=== PATIENT | female | born 1950 | race Caucasian/White ===

== ENCOUNTER → 2020-04-17 07:22 | Outpatient (CLI) | payer MEDICARE, SELFPAY ==
--- NOTE | ~2020-04-17 | MM_ITS ---
EXAMINATION: MM screening [facility] BI w rios HISTORY: Screening TECHNIQUE: Craniocaudal and mediolateral oblique 3-D tomosynthesis images were obtained and synthetic 2-D images were generated. CAD analysis was submitted and interpreted. COMPARISON: Comparison to multiple prior studies sequentially, with oldest reviewed study dated 09/2015. BREAST PARENCHYMAL COMPOSITION: The breasts are heterogeneously dense, which may obscure small masses . FINDINGS: There are benign bilateral breast calcifications. There are developing cluster of calcifica tions in the lower inner quadrant of the left breast. There are no suspicious masses or architectural distortion. IMPRESSION: 1. Developing cluster of left breast calcifications. 2. Magnification views are recommended. BI-RADS Category 0: Incomplete: Needs additional imaging evaluation. Reviewed, dictated and finalized at location A.
== END ==
PROVIDERS: PCP Family Medicine; Visit Provider Nurse Practitioner Adult Health
DX: Z12.31 Encounter for screening mammogram for malignant neoplasm of breast (principal); R92.8 Other abnormal and inconclusive findings on diagnostic imaging of breast
CPT/HCPCS: 77063; 77067

== ENCOUNTER → 2020-04-27 08:03 | Outpatient (CLI) | payer MEDICARE, SELFPAY ==
--- NOTE | ~2020-04-27 | MM_ITS ---
EXAMINATION: MM diagnostic mammo unilat LT HISTORY: Microcalcifications TECHNIQUE: ML and ML, MLO and craniocaudal magnification views of the left breast were performed . CA D analysis was submitted and interpreted. COMPARISON: 04/17/2020 bilateral digital screening mammogram 01/04/2019 diagnostic left digital mammogram 12/17/2018bilateral digital screening mammogram examinations FINDINGS: There are scattered benign-appearing calcifications of the left breast including some group ed microcalcifications in the lower inner quadrant of the left breast near a stereotactic biopsy enha er. These microcalcifications are stable in appearance since 12/17/2018 and 01/04/2019. These ballon to a group of microcalcifications, some of which were removed by stereotactic biopsy and were reported benign. IMPRESSION: 1. Probable benign microcalcifications of left breast, part of a group of microcalcifications injecte d to stereotactic biopsy after 01/04/2019 and reported to be benign 2. 6 month diagnostic left mammogram follow-up is recommended. BI-RADS category 3, probably benign findings. Reviewed, dictated and finalized at location A. IMPRESSION: 1. Probable benign microcalcifications of left breast, part of a group of micro calcifications injected to stereotactic biopsy after 01/04/2019 and reported to be benign 2. 6 month diagnostic left mammogram follow-up is recommended. BI-RADS category 3, probably benign findings.
== END ==
PROVIDERS: PCP Nurse Practitioner Adult Health; Visit Provider Nurse Practitioner Adult Health
DX: R92.8 Other abnormal and inconclusive findings on diagnostic imaging of breast (principal)
CPT/HCPCS: 77065

== ENCOUNTER → 2020-11-30 09:02 | Outpatient (CLI) | payer MEDICARE, SELFPAY ==
--- NOTE | ~2020-11-30 | MM_ITS ---
EXAMINATION: MM diagnostic [facility] LT w rios HISTORY: Follow-up for probably benign left breast calcifications TECHNIQUE: Craniocaudal, mediolateral, and mediolateral oblique 3-D tomosynthesis images of the left breast were performed and synthetic 2-D images were generated. Magnification views are also obtained. CAD analysis was submitted and interpreted. COMPARISON: 04/27/2020, 04/17/2020,12/27/2018, 12/17/2018, 07/27/2017, 06/11/2016 FINDINGS: There are grouped calcifications in the posterior third of the inner breast at the 9:00 loc ation approximately 10 cm from the nipple. The morphology remains pleomorphic and coarse heterogeneou s. An adjacent biopsy marker is present with some of this group of calcifications having previously u ndergone reportedly benign biopsy. There has been no suspicious interval change. No associated mass o r architectural distortion is identified. IMPRESSION: 1. Stable left breast calcifications having previously undergone benign biopsy. No mammographic evide nce of malignancy. 2. Routine screening mammography is recommended. BI-RADS Category 2: Benign finding(s). Reviewed, dictated and finalized at location A. IMPRESSION: 1. Stable left breast calcifications having previously undergone benign biopsy. No mammographic evidence of malignancy. 2. Routine screening mammography is recommended. BI-RADS Category 2: Benign finding(s).
== END ==
PROVIDERS: PCP Nurse Practitioner Adult Health; Visit Provider Nurse Practitioner Adult Health
DX: R92.8 Other abnormal and inconclusive findings on diagnostic imaging of breast (principal)
CPT/HCPCS: 77061; 77065; G0279

== ENCOUNTER 2021-03-19 08:44 | Outpatient (CLI) | payer MEDICARE, SELFPAY ==
[2021-03-19 09:55] LABS: Albumin Level 4.5 g/dL (3.5-5.1); Anion Gap 8 mmol/L (8-16); Blood Urea Nitrogen 14 mg/dL (7-17); Calcium 9.9 mg/dL (8.4-10.2); Carbon Dioxide 27 mmol/L (22-30); Chloride 99 mmol/L (98-107); Estimated Glomerular Filt Rate > 60; Glucose 112 mg/dL (65-110); Phosphorus 3.7 mg/dL (2.5-4.5); Potassium 4.6 mmol/L (3.4-5.0); Sodium 134 mmol/L (137-145)
[2021-03-19 10:04] LABS: Parathyroid Intact 134.3 pg/mL (7.5-53.5)
[2021-03-19 10:28] LABS: Vitamin D 25 Hydroxy 41.1 ng/mL
[2021-03-19 20:56] LABS: Creatinine Urine 48.1 mg/dL
[2021-03-19 21:03] LABS: Creatinine 24 Hour Urine 1.1 gm/24 (0.8-1.8); Total Volume 24 Hour Urine 2300 ml
[2021-03-22 14:54] LABS: Total Volume 2300 mL; Urine Calcium 7.8 mg/dL
== END 2021-03-19 08:45 | disposition home or self-care (01) ==
PROVIDERS: PCP Nurse Practitioner Adult Health; Visit Provider Internal Medicine Endocrinology, Diabetes & Metabolism
DX: E21.3 Hyperparathyroidism, unspecified (principal)
CPT/HCPCS: 36415; 80069; 81050; 82306; 82330; 82340; 82570; 83970

== ENCOUNTER 2021-03-20 09:03 | Outpatient (CLI) | payer MEDICARE, SELFPAY ==
[2021-03-23 06:32] LABS: Ionized Calcium 5.3 mg/dL (4.8-5.6)
== END 2021-03-20 09:04 | disposition home or self-care (01) ==
PROVIDERS: PCP Nurse Practitioner Adult Health; Visit Provider Internal Medicine Endocrinology, Diabetes & Metabolism
DX: E21.3 Hyperparathyroidism, unspecified (principal)
CPT/HCPCS: 36415; 82330

== ENCOUNTER → 2021-04-26 17:38 | Outpatient (CLI) | payer MEDICARE, SELFPAY ==
--- NOTE | ~2021-04-26 | DEXA_ITS ---
Bone Density Report Name: Sarahi Arellano Age: 70 Sex: Female Ethnicity: White Date of : 1950 Indication: hyperparathyroidism; height loss; prior fracture; asthma or emphysema; postmenopausal Referring Provider: Ebony Sen Study: Bone densitometry was performed. Exam Date: April 26, 2021 Accession number: [id number] Bone Density: Region BMD T-score Z-score Classification AP Spine (L1-L4) 1.054 0.1 2.2 Normal Femoral Neck (Left) 0.687 -1.5 0.4 Osteopenia Total Hip (Left) 0.918 -0.2 1.4 Normal Femoral Neck (Right) 0.689 -1.4 0.4 Osteopenia Total Hip (Right) 0.863 -0.6 0.9 Normal Total Hip Mean 0.890 -0.4 1.2 Normal World Health Organization criteria for BMD impression classify patients as: Normal (T-score at or above -1.0), Osteopenia (T-score between -1.0 and -2.5), or Osteoporosis (T-score at or below -2.5). 10-year Fracture Risk: FRAX not reported because: Prior hip or vertebral fracture Previous Exams: Region Exam Age BMD T-score BMD Change BMD Change Date g/cm2 vs Baseline vs Previous AP Spine(L1-L4) 04/26/2021 70 1.054 0.1 0.091* 0.037* 12/17/2018 68 1.016 -0.3 0.054* 0.054* 06/11/2016 66 0.963 -0.8 Total Hip(Left) 04/26/2021 70 0.918 -0.2 0.015 -0.014 12/17/2018 68 0.933 -0.1 0.029* 0.029* 06/11/2016 66 0.903 -0.3 Total Hip(Right) 04/26/2021 70 0.863 -0.6 -0.017 -0.020 12/17/2018 68 0.883 -0.5 0.003 0.003 06/11/2016 66 0.880 -0.5 *Denotes significance at 95% confidence level, LSC for AP Spine = 0.022 g/cm2, LSC for Total Hip = 0.027 g/cm2 Clinical Information Provided by Patient: Have had a previous hip or vertebral fracture Has had a low trauma fracture Has used the following medications: Vitamin D Has the following medical conditions: Asthma or Emphysema, Hyperparathyroidism Patient maximum height was 62.0 Menopause Age: 52 No regular weight bearing exercise Drinks caffeinated beverages Onset of menses at age 13 Number of children 1 Impression: The patient has low bone mass, based on the Left Femoral Neck T-score. The patient has risk factors, including: previous fracture. No significant bone loss was observed. Discussion: INCREASED RISK OF FRACTURE DUE TO HISTORY OF FRACTURE. The patient's previous fracture puts the patient at high risk of a future fracture. In untr
== END ==
PROVIDERS: PCP Nurse Practitioner Adult Health; Visit Provider Internal Medicine Endocrinology, Diabetes & Metabolism
DX: E21.3 Hyperparathyroidism, unspecified (principal); M85.852 Other specified disorders of bone density and structure, left thigh; M85.851 Other specified disorders of bone density and structure, right thigh
CPT/HCPCS: 77080

== ENCOUNTER → 2022-02-11 13:48 | Outpatient (CLI) | payer MEDICARE, SELFPAY ==
--- NOTE | ~2022-02-11 | MM_ITS ---
EXAMINATION: MM screening [facility] BI w rios HISTORY: Screening TECHNIQUE: Craniocaudal and mediolateral oblique 3-D tomosynthesis images were obtained and synthetic 2-D images were generated. CAD analysis was submitted and interpreted. COMPARISON: Comparison to multiple prior studies sequentially, with oldest reviewed study dated 07/10. BREAST PARENCHYMAL COMPOSITION: The breasts are heterogeneously dense, which may obscure small masses . FINDINGS: There is no evidence of suspicious mass, calcification, or architectural distortion to sugg est malignancy in either breast. There has been no suspicious interval change. Stable bilateral breas t calcifications. IMPRESSION: 1. No mammographic evidence of malignancy. 2. Recommend routine screening mammography in one year. BI-RADS Category 2: Benign finding(s). Reviewed, dictated and finalized at location A.
== END ==
PROVIDERS: PCP Nurse Practitioner Adult Health; Visit Provider Nurse Practitioner Adult Health
DX: Z12.31 Encounter for screening mammogram for malignant neoplasm of breast (principal)
CPT/HCPCS: 77063; 77067

== ENCOUNTER 2023-01-02 01:59 | Day surgery (SDC) | payer MEDICARE, SELFPAY ==
[2022-12-18 12:33] VITALS: BMI 35.2
[2023-01-02 10:17] VITALS: BP 142/63; PULSE 73; RESP 19; TEMP 36.2; O2SAT 99
[2023-01-02 10:37] LABS: Glucose Point of Care 86 mg/dl (65-105)
[2023-01-02] MEDS: LACTATED RINGERS 1,000 ML 150 ML IV CONT (10:37)
--- NOTE | 2023-01-02 10:39 | PM.HPGS ---
History of Present Illness History of Present Illness Consent: Risks, benefits, and alternatives have been discussed and questions answered. Patient agrees to proceed with procedure. Chief complaint: other fecal abnormalities Narrative: Sarahi Arellano is a 72 year old female Referred for colon cancer screening. Recent Cologuard test was positive. Review of Systems Review of Systems: All systems reviewed & are unremarkable except as noted in HPI and below PMFSH Family History Family History Other Family history of malignant neoplasm of brain Hypertension Social History Social History Smoking status: Former smoker Tobacco type: cigarettes Alcohol intake: current Substance use: never Substance use type: does not use Living arrangements: with family Spiritual care concerns: No Meds Home Medications and Allergies Home Medications Medication Instructions Recorded Confirmed Type aspirin 81 mg tablet,delayed 81 mg PO DAILY 03/19/20 12/18/22 History release (Adult Aspirin Regimen) garlic 1,000 mg capsule 1,000 mg PO DAILY 03/19/20 12/18/22 History magnesium 250 mg tablet 250 mg PO DAILY 03/19/20 12/18/22 History omega-3 fatty acids 1,000 mg 1,000 mg PO DAILY 03/19/20 12/18/22 History capsule ropinirole 0.5 mg tablet 0.5 mg PO BID PRN Restless Leg(S) 03/19/20 12/18/22 History tramadol 50 mg tablet 50 mg PO Q6H PRN Pain 03/19/20 12/18/22 History vitamin E (dl, acetate) 180 mg 180 mg PO DAILY 03/19/20 12/18/22 History (400 unit) capsule zinc acetate 50 mg (zinc) capsule 50 mg PO DAILY 03/19/20 12/18/22 History (Galzin) cholecalciferol (vitamin D3) 25 50 mcg PO DAILY 12/13/20 12/18/22 History mcg (1,000 unit) capsule carvedilol 6.25 mg tablet 6.25 mg PO Q12H 09/25/22 01/02/23 History empagliflozin 10 mg tablet 10 mg PO DAILY 09/25/22 12/18/22 History (Jardiance) glucosamine HCl 1,500 mg tablet 1,500 mg PO DAILY 09/25/22 12/18/22 History icosapent ethyl 1 gram capsule 2 g PO BID 09/25/22 12/18/22 History (Vascepa) milk thistle 175 mg tablet 175 mg PO DAILY 09/25/22 12/18/22 History montelukast 10 mg tablet 10 mg PO DAILY 09/25/22 12/18/22 History olmesartan 40 1 tablet PO DAILY 09/25/22 12/18/22 History mg-hydrochlorothiazide 25 mg tablet rivaroxaban 2.5 mg tablet (Xarelto) 2.5 mg PO BID 09/25/22 01/02/23 History ascorbic acid (vitamin C) 500 mg 500 mg PO DAILY 12/18/22 12/18/22 History tablet omeprazole 20 mg capsule,delayed 20 mg PO EVERY OTHER DAY 12/18/22 12/18/22 History release simvastatin 40 mg tablet 40 mg PO HS 12/18/22 12/18/22 History turmeric 500 mg PO DAILY 12/18/22 12/18/22 History vitamin B complex 1 tablet PO DAILY 12/18/22 12/18/22 History Allergies Allergy/AdvReac Type Severity Reaction Status Date / Time No Known Allergies Allergy Mild Verified 01/02/23 10:15 Vital Signs Vital Signs - 24 hr 01/02/23 10:17 Temperature 36.2 C L Pulse Rate 73 Respiratory Rate 19 Blood Pressure 142/63 H Pulse Oximetry 99 Oxygen Delivery Room Air Exam Const: General: alert Orientation/consciousness: patient oriented x3 Resp: Auscultation: clear to auscultation bilaterally Cardio: Rhythm: regular rhythm GI: GI Palp: Yes Soft to palpation and No Tenderness to palpation present (GI) Neuro: General: patient oriented x3 Assessment and Plan Assessment and plan (1) Colon cancer screening: Code(s): Z12.11 - Encounter for screening for malignant neoplasm of colon Status: Acute Assessment and Plan: Colonoscopy with possible biopsy or polypectomy or cautery or injection of substances.
--- NOTE | 2023-01-02 11:54 | SUR.OPER ---
DR GOODMAN SWITCHED FROM COLONOSCOPE TO GASTROSCOPE.
[2023-01-02 11:58] VITALS: BP 101/63; PULSE 72; RESP 19; O2SAT 99
[2023-01-02 12:08] VITALS: BP 111/70; PULSE 73; RESP 19; O2SAT 99
[2023-01-02 12:18] VITALS: BP 122/78; PULSE 77; RESP 18; O2SAT 99
== END 2023-01-02 12:20 | disposition home or self-care (01) ==
PROVIDERS: PCP Family Medicine; Visit Provider Internal Medicine Gastroenterology
PROC: 0DJD8ZZ Inspection of Lower Intestinal Tract, Via Natural or Artificial Opening Endoscopic (ICD-10-PCS; CPT 45378; principal; 2023-01-02 11:30)
DX: R19.5 Other fecal abnormalities (principal); D12.5 Benign neoplasm of sigmoid colon; K56.609 Unspecified intestinal obstruction, unspecified as to partial versus complete obstruction; K57.30 Diverticulosis of large intestine without perforation or abscess without bleeding; Z87.891 Personal history of nicotine dependence
CPT/HCPCS: 45385; 45381; 82948; 88305; J2001; J2704; J7120

== ENCOUNTER 2023-03-26 10:00 | Outpatient (CLI) | payer MEDICARE, SELFPAY ==
[2023-03-26 17:05] LABS: Albumin Level 4.4 g/dL (3.5-5.1); Anion Gap 7 mmol/L (8-16); Blood Urea Nitrogen 26 mg/dL (7-17); Carbon Dioxide 32 mmol/L (22-30); Chloride 99 mmol/L (98-107); Estimated Glomerular Filt Rate > 60; Glucose 98 mg/dL (65-110); Phosphorus 4.2 mg/dL (2.5-4.5); Potassium 4.6 mmol/L (3.4-5.0); Sodium 138 mmol/L (137-145)
[2023-03-26 17:57] LABS: Parathyroid Intact 152.3 pg/mL (7.5-53.5)
[2023-03-26 20:02] LABS: Vitamin D 25 Hydroxy 48.1 ng/mL
== END 2023-03-26 10:01 | disposition home or self-care (01) ==
LOC: ANHWCLAB 10:03
PROVIDERS: PCP Family Medicine; Visit Provider Internal Medicine Endocrinology, Diabetes & Metabolism
DX: E21.3 Hyperparathyroidism, unspecified (principal); M85.80 Other specified disorders of bone density and structure, unspecified site
CPT/HCPCS: 36415; 80069; 82306; 83970

== ENCOUNTER 2023-04-29 10:19 | Outpatient (CLI) | payer MEDICARE, SELFPAY ==
--- NOTE | ~2023-04-29 | DEXA_ITS ---
Bone Density Report Name: PETRONA RUSSO Age: 72 Sex: Female Ethnicity: White Date of : 1950 Indication: hyperparathyroidism; height loss; prior fracture; asthma or emphysema; postmenopausal Referring Provider: Ebony Sen Study: Bone densitometry was performed. Exam Date: April 29, 2023 Accession number: [id number] Bone Density: Region BMD T-score Z-score Classification AP Spine (L1-L4) 1.135 0.8 3.1 Normal Femoral Neck (Left) 0.704 -1.3 0.7 Osteopenia Total Hip (Left) 0.881 -0.5 1.2 Normal Femoral Neck (Right) 0.665 -1.7 0.3 Osteopenia Total Hip (Right) 0.835 -0.9 0.8 Normal Total Hip Mean 0.858 -0.7 1.0 Normal World Health Organization criteria for BMD impression classify patients as: Normal (T-score at or above -1.0), Osteopenia (T-score between -1.0 and -2.5), or Osteoporosis (T-score at or below -2.5). 10-year Fracture Risk: FRAX not reported because: Prior hip or vertebral fracture Previous Exams: Region Exam Age BMD T-score BMD Change BMD Change Date g/cm2 vs Baseline vs Previous AP Spine(L1-L4) 04/29/2023 72 1.135 0.8 0.173 0.082 04/26/2021 70 1.054 0.1 0.091* 0.037* 12/17/2018 68 1.016 -0.3 0.054* 0.054* 06/11/2016 66 0.963 -0.8 Total Hip(Left) 04/29/2023 72 0.881 -0.5 -0.022 -0.037 04/26/2021 70 0.918 -0.2 0.015 -0.014 12/17/2018 68 0.933 -0.1 0.029* 0.029* 06/11/2016 66 0.903 -0.3 Total Hip(Right) 04/29/2023 72 0.835 -0.9 -0.045 -0.028 04/26/2021 70 0.863 -0.6 -0.017 -0.020 12/17/2018 68 0.883 -0.5 0.003 0.003 06/11/2016 66 0.880 -0.5 *Denotes significance at 95% confidence level, LSC for AP Spine = 0.022 g/cm2, LSC for Total Hip = 0.027 g/cm2 Clinical Information Provided by Patient: Have had a previous hip or vertebral fracture Has had a low trauma fracture Has used the following medications: Vitamin D Has the following medical conditions: Asthma or Emphysema, Hyperparathyroidism Patient maximum height was 62.0 Menopause Age: 52 No regular weight bearing exercise Drinks caffeinated beverages Onset of menses at age 13 Number of children 1 Impression: The patient has low bone mass, based on the Right Femoral Neck T-score. The patient has risk factors, including: previous fracture. No significant
== END 2023-04-29 10:20 ==
PROVIDERS: PCP Family Medicine; Visit Provider Internal Medicine Endocrinology, Diabetes & Metabolism
DX: E21.3 Hyperparathyroidism, unspecified (principal); M85.852 Other specified disorders of bone density and structure, left thigh; M85.851 Other specified disorders of bone density and structure, right thigh
CPT/HCPCS: 77080

== ENCOUNTER → 2023-04-29 11:02 | Outpatient (CLI) | payer MEDICARE, SELFPAY ==
--- NOTE | ~2023-04-29 | MM_ITS ---
EXAMINATION: MM screening [facility] BI w rios HISTORY: Screening TECHNIQUE: Craniocaudal and mediolateral oblique 3-D tomosynthesis images were obtained and synthetic 2-D images were generated. CAD analysis was submitted and interpreted. COMPARISON: Comparison to multiple prior studies sequentially, with oldest reviewed study dated 12/17. BREAST PARENCHYMAL COMPOSITION: The breasts are heterogeneously dense, which may obscure small masses FINDINGS: Stable appearance to benign bilateral breast calcifications There is no evidence of suspici ous mass, calcification, or architectural distortion to suggest malignancy in either breast. There dominguez s been no suspicious interval change. IMPRESSION: 1. No mammographic evidence of malignancy. 2. Recommend routine screening mammography in one year. BI-RADS Category 2: Benign finding(s). Reviewed, dictated and finalized at location A.
== END ==
PROVIDERS: PCP Family Medicine; Visit Provider Family Medicine
DX: Z12.31 Encounter for screening mammogram for malignant neoplasm of breast (principal)
CPT/HCPCS: 77063; 77067

== ENCOUNTER 2023-12-24 10:02 | Outpatient (CLI) | payer MEDICARE, SELFPAY ==
[2023-12-24 17:24] LABS: Albumin Level 4.4 g/dL (3.5-5.1); Anion Gap 6 mmol/L (4-12); Blood Urea Nitrogen 26 mg/dL (7-17); Carbon Dioxide 29 mmol/L (22-30); Chloride 103 mmol/L (98-107); Estimated Glomerular Filt Rate > 60; Glucose 105 mg/dL (65-110); Phosphorus 4.3 mg/dL (2.5-4.5); Potassium 4.3 mmol/L (3.4-5.0); Sodium 138 mmol/L (137-145)
[2023-12-24 17:57] LABS: Parathyroid Intact 112.4 pg/mL (7.5-53.5)
[2023-12-24 22:11] LABS: Vitamin D 25 Hydroxy 35.1 ng/mL
[2023-12-26 16:38] LABS: Ionized Calcium 5.2 mg/dL (4.7-5.5)
== END 2023-12-24 10:03 | disposition home or self-care (01) ==
LOC: ANHWCLAB 10:04
PROVIDERS: PCP Family Medicine; Visit Provider Internal Medicine Endocrinology, Diabetes & Metabolism
DX: E21.3 Hyperparathyroidism, unspecified (principal); M85.80 Other specified disorders of bone density and structure, unspecified site; R79.89 Other specified abnormal findings of blood chemistry
CPT/HCPCS: 36415; 80069; 82306; 82330; 83970

== ENCOUNTER 2024-06-07 12:02 | Outpatient (CLI) | payer MEDICARE, SELFPAY ==
--- NOTE | ~2024-06-07 | MM_ITS ---
EXAMINATION: MM screening [facility] BI w rios HISTORY: Screening mammogram TECHNIQUE: Craniocaudal and mediolateral oblique 3-D tomosynthesis images were obtained and synthetic 2-D images were generated. CAD analysis was submitted and interpreted. COMPARISON: 04/29/2023, 02/11/2022, 11/30/2020 BREAST PARENCHYMAL COMPOSITION:Not Dense. There are scattered areas of fibroglandular density. FINDINGS: No suspicious mass, calcification, or architectural distortion are identified in either suzy ast to suggest malignancy. There has been no suspicious interval change. IMPRESSION: No mammographic evidence of malignancy. Recommend routine screening mammography in one year. BI-RADS Category 1: Negative Reviewed, dictated and finalized at location .
== END 2024-06-07 12:03 | disposition home or self-care (01) ==
LOC: MICIMG 12:03
PROVIDERS: PCP Physician Assistant; Visit Provider Physician Assistant
DX: Z12.31 Encounter for screening mammogram for malignant neoplasm of breast (principal)
CPT/HCPCS: 77063; 77067

== ENCOUNTER 2024-09-19 09:52 | Outpatient (CLI) | payer MEDICARE, SELFPAY ==
--- OUTSIDE RECORDS SUMMARY | 2024-09-19 10:36 | XMS_ITS | Clinical Summary ---
Author Organization [facility] Address [address] [place] [address] Phone Care Team Providers Care Lineman Apprentice Name Role Phone Unavailable Primary Care Provider Unavailabl e Allergies No known active allergies Social History Tobacco Use Types Packs/Day Years Used Date Smoking Tobacco: Never Assessed Comments Unknown Sex and Gender Information Value Date Recorded Sex Assigned at Not on file Legal Sex Female 3:44 PM CDT Gender Identity Not on file Sexual Orientation Not on file Last Filed Vital Signs Vital Sign Reading Time Taken Comments Blood Pressure - - Pulse - - Temperature - - Respiratory Rate - - Oxygen Saturation - - Inhaled Oxygen Concentration - - Weight 93.9 kg (207 lb) 01/11/2019 10:00 AM CDT Height 149.9 cm (4' 11 ) 01/11/2019 10:00 AM CDT Body Mass Index 41.81 01/11/2019 10:00 AM CDT Plan of Treatment Health Maintenance Due Date Last Done Comments BREAST CANCER SCREENING 1990 COLORECTAL SCREENING 1995 Colorectal Cancer Screening 1995 FIT-DNA Q 3 years 1995 FIT/FOBT Q 1 year 1995 Flex Sig/CT Colonography Q 5 years 1995 ZOSTER VACCINE (1 of 2) 2000 RSV VACCINE (60+ or ) (1 - Risk 60-74 years 1-dose series) 2010 OSTEOPOROSIS SCREENING 2015 PNEUMOCOCCAL VACCINE 65+ YEA RS (3 of 3 - PCV20 or PCV21) 08/13/2022 08/13/2017, 04/29/2011 INFLUENZA VACCINE (#1) 2024 8, 05/10/2017, 04/28/2016, Additional history exists DTAP/TDAP/TD VACCINES (2 - T d or Tdap) 05/28/2025 05/28/2015, 08/10/1992 Insurance [facility] [id number]
--- OUTSIDE RECORDS SUMMARY | 2024-09-19 10:36 | XMS_ITS | CONTINUITY OF CARE DOCUMENT ---
Author Name dawit pastor Address Unknown Organization [facility] Address [address] [place] [address] Phone [phone] Care Team Providers Care Leacher Name Role Phone Virginie LOPEZ, Yan Unavailable [phone] DAMI LOPEZ, ДМИТРИЙ Unavailable [phone] DAMI LOPEZ, RUNDA Unavailable PROBLEMS Condition Status Date Provider Notes Diastolic dysfunction and lvh active Yan Rachel MD Hypertension;mild katherin by dup jose one side;neg angio active Yan Rachel MD Hyperlipidemia;NEG CRP and lpa active Becky Rachel MD Pre-diabetes active Lydia Helms NP Obesity (BMI = 30-39.9) active Yan thurston MD adiex not help much Screening active Yan Rachel MD CAD;carotid plaquing active Yan Mo Mitral insufficiency, mild active Yan monge MD Exposure to SARS-associated coronavirus;had vaccine active Yan Rachel MD Tobacco use, quit active Yan Rachel MD T OO RMEOTE TO SCREN FAMILY HISTORY OF HEART DISEASE active Ruth Ann Rachel MD MOTHER HAD AL AND hyperparathyroidism active Yan Rachel MD Microalbuminuria active Yan Rachel MD on arb and jardicne, not diabetic, neg egfr ENCOUNTERS Date Type Provider Location Encounter Diag nosis - In-person encounter Office Visit Yan Rachel MD [facility] Obesity (BMI = 30-39.9)ScreeningCAD;carotid plaquingMicroalbuminuria - In-person encounter Office Visit Yan Rachel MD [facility] - In-person encounter Office Visit Yan Rachel MD [facility] Microalbuminuria - In-person encounter Office Visit Yan Rachel MD [facility] Hypertension;mild katherin by duplex one side;neg angioMicroalbuminuria - In-person encounter Office Visit Yan Rachel MD [facility] Mitral insufficiency, mildExposure to SARS-associated coronavirus;had vaccineTobacco use, quitFAMILY HISTORY OF HEART DISEASEhyperparathyroidism - In-person encounter Office Visit Yan Rachel MD [facility] Hypertension;mild katherin by duplex one side;neg angioHyperlipidemia;NEG CRP and lpaPre-diabetesObesity (BMI = 30-39.9) VITAL SIGNS Date Observation Value Provider Body Mass Index (Ratio) 33.73 kg/m2 Ruth Ann Rachel MD respiratory rate E&M 18 /min Marisol Reinier sanchez pulse rate 67 /min [facility] blood pressure, cuff size regular Fa [facility] blood pressure, diastolic 69 mm[Hg] Fa [facility] blood pressure, systolic 104 mm[Hg] [facility], oximetry 96 % [facility] weight E&M 167 [lb_av] [facility] height E&M 59 [in_i] [facility] Body Mass Index (Ratio) 33.93 kg/m2 Ruth Ann Rachel MD blood pressure, diastolic 70 mm[Hg] Li [facility] blood pressure, systolic 137 mm[Hg] Hayley [facility] blood pressure, cuff size regular Ja angelet blood pressure, diastolic 70 mm[Hg] Ja angelet blood pressure, systolic 137 mm[Hg] Radha serna pulse rate 68 /min Arun respiratory rate E&M 12 /min Arun oxygen saturation, oximetry 97 % Arun weight E&M 168 [lb_av] Arun y height E&M 59 [in_i] Arun Body Mass Index (Ratio) 35.34 kg/m2 Ruth Ann Rachel MD blood pressure, diastolic 75 mm[Hg] [facility] blood pressure, systolic 141 mm[Hg] Mikal Blevins oxygen saturation, oximetry 99 % Izabel Blevins pulse rate 69 /min Izabel Blevins respiratory rate E&M 16 /min Izabel wang weight E&M 175 [lb_av] Izabel Blevins height E&M 59 [in_i] Izabel Blevins Body Mass Index (Ratio) 35.34 kg/m2 Ruth Ann Rachel MD blood pressure, diastolic 90 mm[Hg] Ri juan Galvin blood pressure, systolic 165 mm[Hg] Niels annie Galvin oxygen saturation, oximetry 99 % Fariba Galvin blood pressure, cuff size regular Jessi juan Galvin respiratory rate E&M 16 /min Ken Galvin pulse rate 72 /min Fariba Khanna son weight E&M 175 [lb_av] Fariba Rankinkana son height E&M 59 [in_i] Fariba Chuchokana ross Body Mass Index (Ratio) 34.33 kg/m2 Ruth Ann Rachel MD blood pressure, diastolic 81 mm[Hg] Ri juan Galvin blood pressure, systolic 155 mm[Hg] Niels annie Galvin blood pressure, cuff size regular Jessi Galvin oxygen saturation, oximetry 98 % Fariba Galvin respiratory rate E&M 16 /min Ken Galvin pulse rate 86 /min Fariba ross weight E&M 170 [lb_av] Fariba ross height E&M 59 [in_i] Fariba ross Body Mass Index (Ratio) 34.94 kg/m2 Ruth Ann Rachel MD blood pressure, diastolic 74 mm[Hg] Li [facility] blood pressure, systolic 160 mm[Hg] Hayley [facility]ic blood pressure, resting Yes [place] dominguez O'Nasir blood pressure, diastolic 74 mm[Hg] Ma rsha O'Nasir blood pressure, systolic 160 mm[Hg] Mar sha O'Nasir oxygen saturation, oximetry 99 % Yvette O'Nasir respiratory rate E&M 16 /min Yvette O'Nasir pulse rate 80 /min Yvette O'Nasir height E&M 59 [in_i] Yvette O'Nasir weight E&M 173 [lb_av] Yvette O'Nasir ALLERGIES No Known Drug Allergies RESULTS Date Observation Value Provider Reference Range Interpretation Location microalbumin/crea tinine ratio, urine 12 MG/G CREAT [facility] 0-29 microalbumin, random, urine 0.48 mg/dL [facility] Units converted. See lab report for original value. creatinine, random, urine 41.0 mg/dL [facility] Not Estab. c-reactive protein, quantitative, serum 1.67 mg/L [facility] 0.00-3.00 lipoprotein, beta, serum, point, quantitative, calculated 60 mg/dL [facility] 0-99 HDL cholesterol, serum 52 mg/dL [facility] >39 triglyceride, serum, random 120 mg/dL [facility] 0-149 cholesterol, serum 133 mg/dL [facility] 772-526 8418/02/07 calcium, serum 10.5 mg/dL [facility] 8.7-10.3 High carbon dioxide, venous blood 28 mmol/L [facility] 20-29 chloride, serum 98 mmol/L [facility] 96-106 potassium, serum 4.6 mmol/L [facility] 3.5-5.2 sodium, serum 139 mmol/L [facility] 186-203 7875/02/07 urea nitrogen/creatini ne ratio, serum 27 [facility] 12-28 creatinine, serum 0.77 mg/dL [facility] 0.57-1.00 urea nitrogen, blood 21 mg/dL [facility] 8-27 blood glucose, random 110 mg/dL [facility] 70-99 High hemoglobin A1C, blood, as % of total hemoglobin 5.5 % [facility] 4.8-5.6 HISTORY OF MEDICATION USE Medication Status Instructions Dates Provider Indications Com isaura Jardiance 10 mg tablet active Take 1 tablet by mouth once a day Nina Pang Jardiance 10 mg tablet completed TAKE 1 TABLET BY MOUTH EVERY DAY - Nina Pang Jardiance 10 mg tablet completed Take 1 tablet by mouth once a day - Falguni Yi Jardiance 10 mg tablet completed TAKE 1 TABLET BY MOUTH EVERY DAY - Nina Pang Xarelto 2.5 mg tablet active TAKE 1 TABLET BY MOUTH TWICE DAILY Veronica De La Rosa olmesartan-hyd rochlorothiazi de 40-25 mg tablet active TAKE 1 TABLET BY MOUTH DAILY No [place] [facility] icosapent ethyl 1 gram capsule active TAKE 2 CAPSULES BY MOUTH TWICE DAILY Veronica De La Rosa Due for f/u soon Jardiance 10 mg tablet completed Take 1 tablet by mouth once a day - Sigrid Ruddy Xarelto 2.5 mg tablet completed Take 1 tablet by mouth twice a day Take 1 tablet by mouth twice daily - Nina Pang simvastatin 40 mg tablet active TAKE 1 TABLET BY MOUTH EVERY NIGHT Hernan Means metformin 500 mg tablet extended release 24 hr completed - Yan Rachel MD Ventolin HFA 90 mcg/actuation HFA aerosol inhaler active as needed Yan Rachel MD tramadol 50 mg tablet active rarely Yan Rachel MD prednisone 5 mg tablet completed - Yan Rachel MD ropinirole 0.5 mg tablet active Yan Rachel MD hydrocodone-ac etaminophen 5-325 mg tablet active rarely Yan Rachel MD carvedilol 6.25 mg tablet active TAKE 1 TABLET BY MOUTH TWICE DAILY Veronica De La Rosa olmesartan-hyd rochlorothiazi de 40-25 mg tablet completed - Susan Cedillo aspirin 81 mg tablet,chewabl e active TAKE 1 TABLET BY MOUTH EVERY DAY Yan Rachel MD Benicar HCT 40-25 mg tablet completed TAKE 1 TABLET DAILY - Yan Rachel MD diltiazem HCl 90 mg capsule,extend ed release 12 hr completed TAKE 1 CAPSULE BY MOUTH TWICE DAILY - Lydia Nalluri [employer] lisinopril 20 mg tablet completed Take 1 tablet by mouth twice a day - Lydia Nalluri [employer] montelukast 10 mg tablet active Take 1 tablet by mouth once a day Yvette David simvastatin 20 mg tablet completed Take 1 tablet by mouth once a day - Yan Rachel MD SOCIAL HISTORY Date Observation Value Provider personal history of marijuana use no Yan Rachel MD drug use no [place] D alcohol use yes Yan Mo smoking status Former smoker Yan thurston MD personal history of marijuana use no Jess Goldsmithreri [employer] drug use no Jess Goldsmithreri [employer]PER[employer] alcohol use yes Jess Goldsmithreri [employer] smoking status Former smoker Jess Goldsmithre ri [employer] social history E&M S 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 Yan Rachel MD social history reviewed E&M revi ewed - no changes required Yan Rachel MD smoking status Never smoker Fariba Chucho soriano quit smoking, stage quit Yan rollins MD smoking status Never smoker Lydia Santosdolly ri [employer] FUNCTIONAL STATUS Date Observation Value Provider HRA, CV Assess/Plan, Angina (inactive) Management Plan continue current therapy Yan Rachel MD HRA, CV Assess/Plan, Angina (inactive) Management Plan continue current therapy Jess Momin NP HRA, CV Assess/Plan, Angina (inactive) Management Plan continue current therapy Yan Rachel MD HRA, CV Assess/Plan, Angina (inactive) Management Plan continue current therapy Yan Rachel MD HRA, CV Assess/Plan, Angina (inactive) Management Plan continue current therapy Yan Rachel MD FAMILY HISTORY Family Member Condition Mother Family History of Co ronary Artery Disease: INSURANCE PROVIDERS Payer name Policy type / Coverage type [place] red green party ID AARP Tappr insurance [place] [id number] [employer]RO[employer] MEDICARE Medicare [id number] ADVANCE DIRECTIVES Name Date [employer] TREATMENT PLAN Date Name Performer [id number],B, n ormalixe with arb and jardince Yan Rachel MD [id number],SYan MD [id number],SYan [id number],B, H er updated medication list for this problem includes: Vascepa 1 Gram Capsule (Icosapent ethyl) ..... Take 2 capsules by mouth twice daily Simvastatin 40 Mg Tablet (Simvastatin) ..... Take 1 tablet by mouth every night Yan Chancea [id number],S, d own to 5.4 Yan Serota [id number],S, Yan Serot a [id number],S, Yan Serot a [id number],S, l vedp 21, nml pro Yan Serota [id number],S, 7 0% lad and 100% rca s core 1339 Yan Serota [id number],S, e gfr great er than 60 n eg aaa Yan Serota [id number],C,normalixe wit h arb and jardince Yan Serota [id number],S, Yan Serot a [id number],S, Yan Serot a [id number],S, Yan Serot a [id number],S, Yan Serot a [id number],S, Yan Serot a [id number],S,e gfr great er than 60 n eg aaa Yan Serota [id number],B, d own to 5.4 on metformin Yan Serota [id number],S, 6 7 Yan Serota [id number],S, H er updated medication list for this problem includes: Simvastatin 40 Mg Tablet (Simvastatin) ..... Take 1 tablet by mouth every night Yan Chancea [id number],S,lvedp 21, nml pro Yan Serota [id number],S,7 0% lad and 100% rca s core 1339 Yan Serota [id number],C,down to 5.4 o n metformin Yan Serota [id number],C,pro nml Harve y Serota [id number],C,67 Yan Ser trever [id number],S, Yan Serot a [id number],S, Yan Serot a [id number],S, Yan Serot a [id number],S, Yan Serot a [id number],S, Yan Serot a [id number],S, Yan Serot a [id number],S, n eg aaa Yan Serota [id number],S, Yan Serot a [id number],S, Yan Serot a [id number],S, s core 1339 Yan Serota [id number],C,score 19xx Dominguez rvey Serota [id number],C,neg aaa Harve y Serota Cardiology Yan Serota Cardiology Ayn Serota Cardiology:did not want roger Vallecilloey Serota Cardiology Yan Serota Cardiology Yan Serota Cardiology: n eg aaa Yan Serota Cardiology Yan Serota Cardiology Yan Serota Cardiology: n ormalixe with arb and maurice Rachel MD Cardiology:neg pet 2 4 7 0% lad and 100% rca s core 1339 Yan Rachel MD Cardiology: d own ot 5.5 on aleenain luiz Rachel MD :down ot 5.5 on jardain e Yan Rachel MD Cardiology: L ast A1c 5.4 (05/2022) Jess Momin NP Cardiology: l ast echo 03/2022 Jess Momin NP Cardiology: R PM Avg BP , HR 80 B P today: 137/70 P rior BP: 141/75 (08/20/2022) Her updated medication list for this problem includes: Carvedilol 6.25 Mg Tablet (Carvedilol) ..... Take 1 tablet by mouth twice daily Olmesartan-hydrochlorothiazide 40-25 Mg Tablet (Olmesartan-hydrochlorothiazide) ..... Take 1 tablet by mouth daily Aspirin 81 Mg Tablet,chewable (Aspirin) ..... Take 1 tablet by mouth every day Jess Momin NP Cardiology: T OTAL 138, TRI 218, HDL 53, LDL 41 (08/2022) w ill repeat labs H er updated medication list for this problem includes: Vascepa 1 Gram Capsule (Icosapent ethyl) ..... Take 2 capsules by mouth twice daily Simvastatin 40 Mg Tablet (Simvastatin) ..... Take 1 tablet by mouth every night Jess Momin NP Cardiology: l vedp 21, nml pro c linically appears compensated Jess Momin NP Cardiology: 7 0% lad and 100% rca s core 1339 n o angina. continue current medications. Jess Momin NP Cardiology: n ormalixe with arb and maurice Rachel MD Cardiology Yan Rachel MD Cardiology Yan Rachel MD Cardiology: H er updated medication list for this problem includes: Vascepa 1 Gram Capsule (Icosapent ethyl) ..... Take 2 capsules by mouth twice daily Simvastatin 40 Mg Tablet (Simvastatin) ..... Take 1 tablet by mouth every night Yan Rachel MD Cardiology: d own to 5.4 Yan Rachel MD Cardiology Yan Rachel MD Cardiology Yan Rachel MD Cardiology: l vedp 21, nml pro Yan Rachel MD Cardiology: 7 0% lad and 100% rca s core 1339 Yan Rachel MD Cardiology: e gfr great er than 60 n eg aaa Yan Rachel MD :normalixe with arb and jardince Yan Rachel MD Cardiology Yan Rachel MD Cardiology Yan Rachel MD Cardiology Yan Rachel MD Cardiology Yan Rachel MD Cardiology Yan Rachel MD Cardiology:egfr grea t er than 60 n eg aaa Yan Rachel MD Cardiology: d own to 5.4 on metformin Yan Rachel MD Cardiology: 6 7 Yan Rachel MD Cardiology: H er updated medication list for this problem includes: Simvastatin 40 Mg Tablet (Simvastatin) ..... Take 1 tablet by mouth every night Yan Rachel MD Cardiology:lvedp 21, nml pro Constantin Rachel MD Cardiology:70% lad a nd 100% rca s core 1339 Yan Rachel MD :down to 5.4 on metformin Yan Rachel MD :pro nml Yan Rachel MD :67 Yan Rachel MD Cardiology Yan Rachel MD Cardiology Yan Rachel MD Cardiology Yan Rachel MD Cardiology Yan Rachel MD Cardiology Yan Rachel MD Cardiology Yan Rachel MD Cardiology: n eg jana Rachel MD Cardiology Yan Rachel MD Cardiology Yan Rachel MD Cardiology: s core 1339 Yan Rachel MD needs sresss?:score 19xx Yan Rachel MD :neg aaa Yan Rachel MD Date Name CRP, high sensitivit y Stress Cardiac PET-C T Lipoprotein (a) LIPID PANEL BASIC METABOLIC PANE L W/EGFR Microalb/Creatinine Urine, Random HEMOGLOBIN A1c BASIC METABOLIC PANE L W/EGFR LIPID PANEL PROBNP, N TERMINAL Cardiac Cath - Left - [facility] Renal Angio - [facility] COMPREHENSIVE METABO LIC PANEL, W/EGFR HEMOGLOBIN A1c Carotid Duplex Bilat eral Microalb/Creatinine Urine, Random PROTHROMBIN TIME WIT H INR LIPID PANEL CBC (INCLUDES DIFF/P LT) CRP, high sensitivit y RPM (remote patient monitoring) RPM (remote patient monitoring) CT, Coronary Calcium Score Complete Echo Renal Artery Duplex HISTORY OF PROCEDURES Procedure Date Procedure Name Provider Procedure Notes S tatus EKG Yan Rachel MD complete d CT- Coronary CA score Yan Rachel MD completed EKG Yan Rachel MD complete d
[2024-09-19 10:38] LABS: Albumin Level 4.3 g/dL (3.5-5.1); Anion Gap 10 mmol/L (4-12); Blood Urea Nitrogen 25 mg/dL (7-17); Calcium 10.3 mg/dL (8.4-10.2); Carbon Dioxide 30 mmol/L (22-30); Chloride 98 mmol/L (98-107); Estimated Glomerular Filt Rate > 60; Glucose 98 mg/dL (65-110); Phosphorus 4.1 mg/dL (2.5-4.5); Potassium 4.2 mmol/L (3.4-5.0); Sodium 138 mmol/L (137-145)
[2024-09-19 10:44] LABS: Parathyroid Intact 102.8 pg/mL (14.5-75.2)
[2024-09-19 11:30] LABS: Creatinine Urine 37.8 mg/dL
[2024-09-19 12:03] LABS: Creatinine 24 Hour Urine 1.1 gm/24 (0.8-1.8); Total Volume 24 Hour Urine 3000 ml
[2024-09-20 11:24] LABS: Ionized Calcium 5.5 mg/dL (4.7-5.5)
== END 2024-09-19 09:53 | disposition home or self-care (01) ==
PROVIDERS: PCP Physician Assistant; Visit Provider Internal Medicine Endocrinology, Diabetes & Metabolism
DX: E21.3 Hyperparathyroidism, unspecified (principal); M85.80 Other specified disorders of bone density and structure, unspecified site; R79.89 Other specified abnormal findings of blood chemistry
CPT/HCPCS: 36415; 80069; 81050; 82306; 82330; 82340; 82570; 83970

== ENCOUNTER 2024-12-07 11:25 | Outpatient (CLI) | payer MEDICARE, SELFPAY ==
[2024-12-07 11:48] LABS: Total Volume 24 Hour Urine 2500 ml
[2024-12-07 11:58] LABS: Creatinine Urine 43.1 mg/dL
--- OUTSIDE RECORDS SUMMARY | 2024-12-07 12:58 | XMS_ITS | Clinical Summary ---
Author Organization [facility] Address [address] [place] [address] Phone Care Team Providers Care Special Events Driver Name Role Phone Unavailable Primary Care Provider [...] series) 2010 OSTEOPOROSIS SCREENING 2015 PNEUMOCOCCAL VACCINE 50+ YEA RS (3 of 3 - PCV20 or PCV21) 08/13/2022 08/13/2017, 04/29/2011 INFLUENZA VACCINE (#1) 2024 8, 05/10/2017, 04/28/2016, Additional history exists DTAP/TDAP/TD VACCINES (2 - T d or Tdap) 05/28/2025 05/28/2015, 08/10/1992 Insurance [facility] [id number]
--- OUTSIDE RECORDS SUMMARY | 2024-12-07 12:58 | XMS_ITS | CONTINUITY OF CARE DOCUMENT ---
Author Name dawit pastor Address Unknown Organization [facility] Address [address] [place] [address] Phone [phone] Care Team Providers Care Criminal Investigator Customs Name Role Phone Virginie LOPEZ, Yan Unavailable [phone] DAMI LOPEZ, ДМИТРИЙ Unavailable EBENEZER PATHAK Unavailable PROBLEMS Condition Status Date Provider Notes [...] active Ruth Ann Rachel MD MOTHER HAD IA AND hyperparathyroidism active Yan Rachel MD Microalbuminuria active Yan Rachel MD on arb and jardicne, not diabetic, neg egfr ENCOUNTERS Date Type Provider Location Encounter Diag nosis - In-person encounter Office Visit Yan Rachel MD [place] [facility] - In-person encounter Office Visit Yan Rachel MD [place] [facility] Obesity (BMI = 30-39.9)ScreeningCAD;carotid plaquingMicroalbuminuria - In-person encounter Office Visit Yan Rachel MD [place] [facility] - In-person encounter Office Visit Yan Rachel MD [place] [facility] Microalbuminuria - In-person encounter Office Visit Yan Rachel MD [place] [facility] Hypertension;mild katherin by duplex one side;neg angioMicroalbuminuria - In-person encounter Office Visit Yan Rachel MD [facility] Mitral insufficiency, mildExposure to SARS-associated coronavirus;had vaccineTobacco use, quitFAMILY HISTORY OF HEART DISEASEhyperparathyroidism - In-person encounter Office Visit Yan Rachel MD [place] [facility] Hypertension;mild katherin by duplex one side;neg angioHyperlipidemia;NEG CRP and lpaPre-diabetesObesity (BMI = 30-39.9) VITAL SIGNS Date Observation Value Provider Body Mass Index (Ratio) 32.51 kg/m2 Ruth Ann Rachel MD blood pressure, diastolic 63 mm[Hg] Sherwin bertrand [facility] blood pressure, systolic 98 mm[Hg] Shymarely otero [facility] oxygen saturation, oximetry 94 % [facility] pulse rate 66 /min [facility] blood pressure, cuff size regular Sherwin [facility] weight E&M 161 [lb_av] [facility] height E&M 59 [in_i] [facility] Body Mass Index (Ratio) 33.73 kg/m2 Ruth Ann Rachel MD respiratory rate E&M 18 /min Marisol M iller pulse rate 67 /min Marisol Mart blood pressure, cuff size regular Joseph sky [facility] blood pressure, diastolic 69 mm[Hg] Fa jose daniel Mart blood pressure, systolic 104 mm[Hg] Philip Mart oxygen saturation, oximetry 96 % Marisol Mart weight E&M 167 [lb_av] Marisol Mart height E&M 59 [in_i] [facility] Body Mass Index (Ratio) 33.93 kg/m2 Ruth Ann Rachel MD blood pressure, diastolic 70 mm[Hg] Li nkLog blood pressure, systolic 137 mm[Hg] Hayley kLog blood pressure, cuff size regular Leo rr blood pressure, diastolic 70 mm[Hg] Ja et blood pressure, systolic 137 mm[Hg] Jar daphne pulse rate 68 /min Arun respiratory rate E&M 12 /min Arun oxygen saturation, oximetry 97 % Arun weight E&M 168 [lb_av] Arun y height E&M 59 [in_i] Arun y Body Mass Index (Ratio) 35.34 kg/m2 Ruth [...] blood pressure, diastolic 90 mm[Hg] Ri juan Kamar blood pressure, systolic 165 mm[Hg] Niels annie Galvin oxygen saturation, oximetry 99 % Fariba Galvin blood pressure, cuff size regular Ri juan Galvin respiratory rate E&M 16 /min Richell e Galvin pulse rate 72 /min Fariba Khanna [facility] weight E&M 175 [lb_av] Fariba Khanna [facility] height E&M 59 [in_i] Fariba Khanna [facility] Body Mass Index (Ratio) 34.33 kg/m2 Ruth Ann Rachel MD blood pressure, diastolic 81 mm[Hg] Ri juan Galvin blood pressure, systolic 155 mm[Hg] Niels annie Galvin blood pressure, cuff size regular Jessi aGlvin oxygen saturation, oximetry 98 % Fariba Galvin respiratory rate E&M 16 /min Ken Galvin pulse rate 86 /min Fariba Khanna [facility] weight E&M 170 [lb_av] Fariba Khanna [facility] height E&M 59 [in_i] Fariba Khanna [facility] Body Mass Index (Ratio) 34.94 kg/m2 Ruth Ann Rachel MD blood pressure, diastolic 74 mm[Hg] Dianna nkLogic blood pressure, systolic 160 mm[Hg] Hayley kLogic blood pressure, resting Yes [place] dominguez O'Nasir blood pressure, diastolic 74 mm[Hg] Ma rsha O'Nasir blood pressure, systolic 160 mm[Hg] Mar sha O'Nasir oxygen saturation, oximetry 99 % Yvette O'Nasir respiratory rate E&M 16 /min Yvette O'Nasir pulse rate 80 /min Yvette O'Nasir height E&M 59 [in_i] Yvette David weight E&M 173 [lb_av] Yvette David ALLERGIES No Known Drug Allergies RESULTS Date [...] LinkLogic 0-149 cholesterol, serum 133 mg/dL [facility] 561-903 6156/02/07 calcium, serum 10.5 mg/dL [facility] 8.7-10.3 High carbon dioxide, venous blood 28 mmol/L Link[facility]ic 20-29 chloride, serum 98 mmol/L Link[facility]ic 96-106 potassium, serum 4.6 mmol/L Link[facility]ic 3.5-5.2 sodium, serum 139 mmol/L [facility]ic [phone]/02/07 urea nitrogen/creatini ne ratio, serum 27 [facility] 12-28 creatinine, serum 0.77 mg/dL [facility] 0.57-1.00 urea nitrogen, blood 21 mg/dL [facility]ic 8-27 blood glucose, random 110 mg/dL [facility] 70-99 High hemoglobin A1C, blood, as % of total hemoglobin 5.5 % LinkLogic 4.8-5.6 HISTORY OF MEDICATION USE Medication Status Instructions Dates Provider Indications Com ments Jardiance 10 mg tablet active Take 1 tablet by mouth once a day Nina Poly Jardiance 10 mg tablet completed TAKE 1 TABLET BY MOUTH EVERY DAY - Nina Santosburtonkana Jardiance 10 mg tablet completed Take 1 tablet by mouth once a day - Falguni Yi Jardiance 10 mg tablet completed TAKE 1 TABLET BY MOUTH EVERY DAY - Nina Poly Xarelto 2.5 mg tablet active TAKE 1 TABLET BY MOUTH TWICE DAILY Veronica De LaR osa olmesartan-hyd rochlorothiazi de 40-25 mg tablet active TAKE 1/2 TABLET BY MOUTH DAILY Yan Rachel MD Vascepa 1 gram capsule active TAKE 2 CAPSULES BY MOUTH TWICE DAILY [facility]ist Due for f/u mark Jardiance 10 mg tablet completed Take 1 tablet by mouth once a day - Sigrid Fox Xarelto 2.5 mg tablet completed Take 1 tablet by mouth twice a day Take 1 tablet by mouth twice daily - Nina Pang simvastatin 40 mg tablet active TAKE 1 TABLET BY MOUTH EVERY NIGHT Hernan Means metformin 500 mg tablet extended release 24 hr completed - Yan Rcahel MD Ventolin HFA 90 mcg/actuation HFA aerosol [...] BY MOUTH EVERY DAY Yan Rachel MD Benshawna HCT 40-25 mg tablet completed TAKE 1 TABLET DAILY - Yan Rachel MD diltiazem HCl 90 mg capsule,extend ed release 12 hr completed TAKE 1 CAPSULE BY MOUTH TWICE DAILY - Lydia Nalluri CONTINGENTS SUPERVISOR lisinopril 20 mg tablet completed Take 1 tablet by mouth twice a day - Lydia Nalluri CONTINGENTS SUPERVISOR montelukast 10 mg tablet active Take 1 tablet by mouth once a day Yvette David simvastatin 20 mg tablet completed Take 1 tablet by mouth once a day - Yan Rachel MD SOCIAL HISTORY Date Observation Value Provider personal history of marijuana use no Yan Rachel MD drug use no Yan Mo alcohol use yes Yan Mo smoking status Former smoker Yan thurston MD personal history of marijuana use no Yan Rachel MD drug use no Yan Mo alcohol use yes Yan Mo smoking status Former smoker Yan thurston MD personal history of marijuana use no Jess Goldsmithreri CONTINGENTS SUPERVISOR drug use no Verheather Bonareri CONTINGENTS SUPERVISOR alcohol use yes Verah Bonareri CONTINGENTS SUPERVISOR smoking status Former smoker Bibheather Goldsmithre ri CONTINGENTS SUPERVISOR social history E&M S 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 Yan Rachel MD social history reviewed E&M revi ewed - no changes required Yan Rachel MD smoking status Never smoker Fariba soriano quit smoking, stage quit Yan rollins MD smoking status Never smoker Lydia Frederick ri CONTINGENTS SUPERVISOR FUNCTIONAL STATUS Date Observation Value Provider HRA, CV Assess/Plan, Angina (inactive) Management Plan continue current therapy Yan Rachel MD HRA, CV Assess/Plan, Angina (inactive) Management Plan continue current therapy Yan Rachel MD HRA, CV Assess/Plan, Angina (inactive) Management Plan continue current therapy Bibheather Liliane RESENDIZ HRA, CV Assess/Plan, Angina (inactive) Management Plan continue current therapy Yan Rachel MD HRA, CV Assess/Plan, Angina (inactive) Management Plan continue current therapy Yan Rachel MD HRA, CV Assess/Plan, Angina (inactive) Management Plan continue current therapy Yan Rachel MD FAMILY HISTORY Family Member Condition Mother Family History of Co ronary Artery Disease: INSURANCE PROVIDERS Payer name Policy type / Coverage type [place] [employer] party ID AARP deskwolf [id number] [employer]RO[employer] MEDICARE Medicare [id number] ADVANCE DIRECTIVES Name Date POWER OF POUNCING LATHE [employer]PERATOR T[employer]ATMENT PLAN Date Name Performer [id number],B, n ormalixe with arb and jardince Yan Rachel MD [id number],S, Yan thurston MD [id number],S, Yan thurston MD [id number],B, H er updated medication list for this problem includes: Vascepa 1 Gram Capsule (Icosapent ethyl) ..... Take 2 capsules by mouth twice daily Simvastatin 40 Mg Tablet (Simvastatin) ..... Take 1 tablet by mouth every night Yan Rachel MD [id number],S, d own to 5.4 Yan Rachel MD [id number],SYan MD [id number],S, Yan thurston MD [id number],S, l vedp 21, nml pro Yan Rachel MD [id number],S, 7 0% lad and 100% rca s core 1339 Yan Rachel MD [id number],S, e gfr great er than 60 n eg aaa Yan Serota [id number],C,normalixe wit h arb and jardince Yan Serota [id number],S, Yan Serot a [id number],S, Yan Serot a [id number],S, Yan Serot a [id number],S, Yan Serot a [id number],S, Yan Serot a [id number],S,e gfr great er than 60 n eg aaa Yan Serota [id number],B, d own to 5.4 on metformin Yan Serota [id number],S, 6 7 Yan Serota [id number],S, H er updated medication list for this problem includes: Simvastatin 40 Mg Tablet (Simvastatin) ..... Take 1 tablet by mouth every night Yan Serota [id number],S,lvedp 21, nml pro Yan Serota [id number],S,7 0% lad and 100% rca s core 1339 Yan Serota [id number],C,down to 5.4 o n metformin Yan Serota [id number],C,pro nml Harve y Serota [id number],C,67 Yan Ser quotation clerk [id number],S, Yan Serot a [id number],S, Yan Serot a [id number],S, Yan Serot a [id number],S, Yan Serot a [id number],S, Yan Serot a [id number],S, Yan Serot a [id number],S, n eg aaa Yan Serota [id number],S, Yan Serot a [id number],S, Yan Serot a [id number],S, s core 1339 Yan Serotbertrand LOPEZ [id number],C,score 19xx Dominguez rvey Virginie LOPEZ [id number],C,neg aaa Becky Rachel MD Cardiology: H er updated medication list for this problem includes: Carvedilol 6.25 Mg Tablet (Carvedilol) ..... Take 1 tablet by mouth twice daily Olmesartan-hydrochlorothiazide 40-25 Mg Tablet (Olmesartan-hydrochlorothiazide) ..... Take 1 tablet by mouth daily Aspirin 81 Mg Tablet,chewable (Aspirin) ..... Take 1 tablet by mouth every day Yan Rachel MD Cardiology Yan Rachel MD Cardiology Yan Rachel MD Cardiology: d own ot 5.5 on jardain e Yan Rachel MD Cardiology: d id not want antyghie else Yan Rachel MD Cardiology: n eg aaa Yan Rachel MD Cardiology: l vedp 21, nml pro c linically appears compensated Yan Rachel MD Cardiology: n eg pet 24 7 0% lad and 100% rca s core 1339 Yan Rachel MD Cardiology Yan Serotbertrand LOPEZ Cardiology Yan Serotbertrand LOPEZ Cardiology Yan Serotbertrand LOPEZ Cardiology: n ormalixe with arb and jardince Yan Rachel MD Cardiology Yan Rachel MD Cardiology Yan Serotbertrand LOPEZ Cardiology:did not want roger goode Yan Rachel MD Cardiology Yan Rachel MD Cardiology Yan Rachel MD Cardiology: n eg aaa Yan Rachel MD Cardiology Yan Rachel MD Cardiology Yan Rachel MD Cardiology: n ormalixe with arb and jardince Yan Rachel MD Cardiology:neg pet 2 4 7 0% lad and 100% rca s core 1339 Yan Rachel MD Cardiology: d own ot 5.5 on jardain e Yan Rachel MD :down ot 5.5 on jardain e Yan Rachel MD Cardiology: L ast A1c 5.4 (05/2022) Jess Momin NP Cardiology: l ast echo 03/2022 Jess Momin NP Cardiology: R PM Avg BP 11/62, HR 80 B P today: 137/70 P [...] Yan Rachel MD :normalixe with arb and maurice Rachel MD Cardiology Yan Rachel MD Cardiology Yan Rachel MD Cardiology Yan Serotbertrand LOPEZ Cardiology Yan Serotbertrand LOPEZ Cardiology Yan Serotbertrand LOPEZ Cardiology:egfr grea t er than 60 n eg aaa Yan Rachel MD Cardiology: d own to 5.4 on metformin Yan Rachel MD Cardiology: 6 7 Yan Serotbertrand LOPEZ Cardiology: H er updated medication list for this problem includes: Simvastatin 40 Mg Tablet (Simvastatin) ..... Take 1 tablet by mouth every night Yan Rachel MD Cardiology:lvedp 21, nml pro Constantin agnieszka Rachel MD Cardiology:70% lad a nd 100% [...] needs sresss?:score 19xx Yan Rachel MD :neg jana Rachel MD Date Name CRP, high sensitivit [...] tatus EKG Yan Rachel MD complete d EKG Yan Rachel MD complete d CT- Coronary CA score Yan Rachel MD completed EKG Yan Rachel MD complete d
== END 2024-12-07 11:26 | disposition home or self-care (01) ==
LOC: ANHLAB 11:28
PROVIDERS: PCP Physician Assistant; Visit Provider Internal Medicine Endocrinology, Diabetes & Metabolism
DX: E21.3 Hyperparathyroidism, unspecified (principal)
CPT/HCPCS: 81050; 82340; 82570

== ENCOUNTER 2025-05-11 09:11 | Outpatient (CLI) | payer MEDICARE, SELFPAY ==
--- NOTE | ~2025-05-11 | CT_ITS ---
Sarahi Arellano EXAMINATION: CT abdomen pelvis w con COMPARISON: None HISTORY: LLQ pain x 2 months, UTI in March TECHNIQUE: Axial images were obtained through the abdomen, pelvis post administration of IV contrast. Oral contrast was also administered. Coronal reconstruction images were obtained from the axial views. CT scan performed using dose optimization techniques including the following automated exposure control; adjustment of mA and/or kV; use of iterative reconstruction technique. Automatic exposure control was used to reduce radiation dose. Permanent radiation dose record is archived to PACS. FINDINGS: CT abdomen: LUNG BASES: The lung bases are clear. The visualized portions of the heart and pericardium are unremarkable. LIVER: Unremarkable, liver contours intact, no lesions. SPLEEN: Unremarkable. KIDNEYS: Right Kidney: Unremarkable. No calculi. No hydronephrosis. Left Kidney: Unremarkable. No calculi. No hydronephrosis ADRENAL GLANDS: Unremarkable. PANCREAS: Unremarkable. GALLBLADDER/BILIARY: Unremarkable. No biliary dilatation. STOMACH AND ESOPHAGUS: Visualized stomach and esophagus within normal limits. BOWEL/MESENTERY: There is moderate to severe diverticulosis with inflammatory changes surrounding the proximal descending colon consistent with acute diverticulitis, there is involvement of the adjacent abdominal wall with a tiny abscess measuring 6 x 7 mm. The remaining large bowel demonstrates moderate fecal content. Appendix not identified. Remaining mesentery normal. No thickened or dilated loops of small bowel. ADENOPATHY/RETROPERITONEUM: No lymphadenopathy. AORTA/VASCULATURE: Normal caliber aorta. FREE FLUID OR FREE AIR: None. CT pelvis: SOLID ORGANS/REPRODUCTIVE: Uterus atrophic, no adnexal mass. The uterine cavity is abnormally prominent in this postmenopausal patient, pelvic ultrasound is recommended. BLADDER: Circumferential thickening of the bladder wall is noted. OSSEOUS STRUCTURES: Degenerative changes lumbar spine. OVERLYING SOFT TISSUES: Unremarkable. IMPRESSION: Acute diverticulitis detailed above Reviewed, dictated and finalized at location P.
[2025-05-11 09:42] LABS: Estimated Glomerular Filt Rate > 60
== END 2025-05-11 09:12 | disposition home or self-care (01) ==
DX: K57.20 Diverticulitis of large intestine with perforation and abscess without bleeding (principal)
CPT/HCPCS: 74177; Q9967

== ENCOUNTER 2025-06-09 13:40 | Outpatient (CLI) | payer MEDICARE, SELFPAY ==
--- NOTE | ~2025-06-09 | MM_ITS ---
EXAMINATION: MM screening [facility] BI w [facility]os HISTORY: Screening TECHNIQUE: Craniocaudal and mediolateral oblique 3-D tomosynthesis images were obtained and synthetic 2-D images were generated. CAD analysis was submitted and interpreted. COMPARISON: Comparison to multiple prior studies sequentially, with oldest reviewed study dated 04/17/2020. BREAST PARENCHYMAL COMPOSITION: Not dense: There are scattered areas of fibroglandular density. FINDINGS: There is a developing cluster of indeterminate calcifications in the upper outer quadrant of the left breast, middle third. The right breast is stable without evidence for malignancy. IMPRESSION: 1. Developing cluster of indeterminate left breast calcifications upper outer quadrant. 2. Magnification views are recommended. BI-RADS Category 0: Incomplete: Needs additional imaging evaluation. Reviewed, dictated and finalized at location B. IMPRESSION: 1. Developing cluster of indeterminate left breast calcifications upper outer q uadrant. 2. Magnification views are recommended. BI-RADS Category 0: Incomplete: Needs additional imaging evaluation.
--- NOTE | ~2025-06-09 | DEXA_ITS ---
Bone Density Report Name: PETRONA RUSSO Age: 75 Sex: Female Ethnicity: White Date of : 1950 Indication: hyperparathyroidism; height loss; prior fracture; asthma or emphysema; Referring Provider: HAKEEM, BIRD Solo Study: Bone densitometry was performed. Exam Date: June 09, 2025 Accession number: [id number] Bone Density: Region BMD T-score Z-score Classification AP Spine(L1, L2, L4) 1.051 0.2 2.5 Normal Femoral Neck (Left) 0.628 -2.0 0.1 Osteopenia Total Hip (Left) 0.885 -0.5 1.3 Normal Femoral Neck (Right) 0.667 -1.6 0.4 Osteopenia Total Hip (Right) 0.826 -1.0 0.8 Normal Total Hip Mean 0.855 -0.8 1.1 Normal World Health Organization criteria for BMD impression classify patients as: Normal (T-score at or above -1.0), Osteopenia (T-score between -1.0 and -2.5), or Osteoporosis (T-score at or below -2.5). 10-year Fracture Risk: FRAX not reported because: Prior hip or vertebral fracture Previous Exams: -- Region Exam Age BMD T-score BMD Change BMD Change Date g/cm2 vs Baseline vs Previous -- AP Spine (L1-L2,L4) 06/09/2025 75 1.051 0.2 6.1%# -7.1%* 04/29/2023 72 1.131 0.9 14.2%# 10.0%# 04/26/2021 70 1.028 -0.1 3.8%* 1.6% 12/17/2018 68 1.012 -0.2 2.2% 2.2% 06/11/2016 66 0.990 -0.4 Total Hip(Left) 06/09/2025 75 0.885 -0.5 -2.1%# 0.4% 04/29/2023 72 0.881 -0.5 -2.4%# -4.0%# 04/26/2021 70 0.918 -0.2 1.7% -1.5% 12/17/2018 68 0.933 -0.1 3.3%* 3.3%* 06/11/2016 66 0.903 -0.3 Total Hip(Right) 06/09/2025 75 0.826 -1.0 -6.2%# -1.1% 04/29/2023 72 0.835 -0.9 -5.2%# -3.2%# 04/26/2021 70 0.863 -0.6 -2.0% -2.3% 12/17/2018 68 0.883 -0.5 0.3% 0.3% 06/11/2016 66 0.880 -0.5 -- *Denotes significance at 95% confidence level, LSC for AP Spine = 0.022 g/cm2, LSC for Total Hip = 0.027 g/cm2 Rate of change results reflect vertebral levels common to all scans # Denotes dissimilar scan types or analysis methods Clinical Information Provided by Patient: Have had a previous hip or vertebral fracture Has had a low trauma fracture Has used the following medications: Vitamin D Has the following medical conditions: Asthma or Emphysema, Hyperparathyroidism Patient maximum height was 62 Menopause Age: 52 No regular weight bearing exercise Drinks caffeinated beverages Onset of menses at age 14 Number of children 1 Impression: The patient has low bone mass, based on the Left Femoral Neck T-score. The patient has risk factors, including: previous fracture. The BMD for the AP Spine (L1-L2,L4) decreased, changing by -7.1% since the last DXA exam. Discussion: INCREASED RISK OF FRACTURE DUE TO HISTORY OF FRACTURE. The patient's previous fracture puts the patient at high risk of a future fracture. In untreated patients, the risk of osteoporotic fracture increases approximately two-fold for each 1.0 SD decrease in T-score. Low bone density is not the only risk factor for fracture; also consider factors such as patient's age, frailty or poor health, risk of falling, risk of injury, previous osteoporotic fracture, family history of osteoporosis, cigarette smoking, low body weight, etc. Not everyone with a low trauma fracture has osteoporosis; osteomalacia and other metabolic bone disorders should also be considered. Patients who have osteoporosis should be evaluated for specific diseases and conditions (secondary causes) that may cause or contribute to bone loss and fracture risk. National Osteoporosis Foundation (NOF) recommends pharmacologic intervention for patients with a prior hip or vertebral fracture regardless of BMD T-score. The patient should follow a healthful lifestyle (good nutrition with adequate calcium and vitamin D, and appropriate weight-bearing exercise). Follow-Up: Consider a repeat BMD and Vertebral Fracture Assessment (VFA) exam in 2 years or sooner if medically necessary, to reassess this patient's status. Reported by: TALHA on 06/09/2025 2:36:00 PM. Reviewed, dictated and finalized at location A.
== END 2025-06-09 13:41 | disposition home or self-care (01) ==
DX: Z12.31 Encounter for screening mammogram for malignant neoplasm of breast (principal); R92.8 Other abnormal and inconclusive findings on diagnostic imaging of breast; M85.89 Other specified disorders of bone density and structure, multiple sites; Z78.0 Asymptomatic menopausal state
CPT/HCPCS: 77063; 77067; 77080

== ENCOUNTER 2025-06-28 09:41 | Outpatient (CLI) | payer MEDICARE, SELFPAY ==
[2025-06-28 10:35] LABS: Albumin Level 4.0 g/dL (3.5-5.1); Anion Gap 7 mmol/L (4-12); Blood Urea Nitrogen 19 mg/dL (7-17); Calcium 10.0 mg/dL (8.4-10.2); Carbon Dioxide 31 mmol/L (22-30); Chloride 100 mmol/L (98-107); Estimated Glomerular Filt Rate > 60; Glucose 91 mg/dL (65-110); Potassium 4.6 mmol/L (3.4-5.0); Sodium 138 mmol/L (137-145)
[2025-06-28 10:40] LABS: Hemoglobin A1C 5.2 % (<5.7)
[2025-06-28 10:49] LABS: Parathyroid Intact 79.5 pg/mL (14.5-75.2)
[2025-06-28 11:11] LABS: Thyroid Stimulating Hormone 1.770 uIU/mL (0.465-4.680)
== END 2025-06-28 09:42 | disposition home or self-care (01) ==
PROVIDERS: Visit Provider Internal Medicine Endocrinology, Diabetes & Metabolism
DX: R79.89 Other specified abnormal findings of blood chemistry (principal); R73.03 Prediabetes; M85.851 Other specified disorders of bone density and structure, right thigh; M85.852 Other specified disorders of bone density and structure, left thigh; I10 Essential (primary) hypertension
CPT/HCPCS: 36415; 80069; 82306; 83036; 83970; 84443